=== PATIENT | female | born 1995 | race African-American/Black ===

== ENCOUNTER 2024-03-10 01:55 | Inpatient (IN) | payer OTHER ==
[2024-03-10 03:02] VITALS: BMI 38.4
[2024-03-10] MEDS: LACTATED RINGERS SOLUTION 1,000 ML/1,000 ML INFUS.BAG IV SCH (03:10)
[2024-03-10 03:26] LABS: HEMATOCRIT 36.4 % (32.4-45.2); HEMOGLOBIN 12.4 GM/dL (10.7-15.3); LYMPH % 23.4 % (8-40); MCH 31.5 pg (25.7-33.7); MCHC 34.1 g/dl (32.0-36.0); MEAN CELL VOLUME 92.3 fl (80-96); MEAN PLT VOLUME 7.5 fl (7.5-11.1); MONO % 7.3 % (3.8-10.2); NEUT % 67.3 % (42.8-82.8); PLATELET COUNT 300 10^3/uL (134-434); RBC 3.95 M/mm3 (3.60-5.2); RDW 14.4 % (11.6-15.6); WHITE BLOOD COUNT 9.7 K/mm3 (4.0-10.0)
[2024-03-10 03:41] LABS: INR 0.91 (0.83-1.09); PROTHROMBIN TIME (PATIENT) 10.3 SEC (9.7-13.0)
[2024-03-10 03:42] LABS: POTASSIUM 4.1 mmol/L (3.5-5.1)
[2024-03-10 03:43] LABS: ALBUMIN 2.8 g/dl (3.4-5.0); BLOOD UREA NITROGEN 11.4 mg/dL (7-18); CALCIUM 9.2 mg/dL (8.5-10.1)
[2024-03-10 03:44] LABS: ACTIVATED PTT 31.6 SECONDS (25.2-36.5)
[2024-03-10 03:47] LABS: CREATININE 0.7 mg/dL (0.55-1.3); URIC ACID 4.7 mg/dL (2.6-7.2)
[2024-03-10 03:49] LABS: BILIRUBIN,TOTAL 0.2 mg/dL (0.2-1); TOT PROT 6.8 g/dl (6.4-8.2)
[2024-03-10 03:53] LABS: EPI CELLS >36 /uL (0-25.1); HYALINE CASTS 7 /uL (0-3.1); URINE APPEARANCE CLEAR; URINE BACTERIA 46 /uL (0-1359); URINE BILIRUBIN NEGATIVE (NEGATIVE); URINE COLOR YELLOW; URINE GLUCOSE (UA) NEGATIVE (NEGATIVE); URINE KETONE NEGATIVE (NEGATIVE); URINE LEUK ESTERASE NEGATIVE (NEGATIVE); URINE NITRITE NEGATIVE (NEGATIVE); URINE PROTEIN NEGATIVE (NEGATIVE); URINE RBC 221 /uL (0-23.9); URINE UROBILINOGEN 0.2 mg/dL (0.2-1.0); URINE WBC 14 /uL (0-25.8)
[2024-03-10 04:00] LABS: URINE BARBITURATES NEGATIVE (NEGATIVE)
[2024-03-10 04:01] LABS: METHADONE, UR NEGATIVE (NEGATIVE); PHENCYCLIDINE,URINE NEGATIVE (NEGATIVE)
[2024-03-10] MEDS ORDERED: BUTORPHANOL TARTRATE 2 MG/ML VIAL ONE (04:04)
[2024-03-10] MEDS: BUTORPHANOL TARTRATE 1 MG/ML VIAL IVPB PRN (04:10)
[2024-03-10] MEDS: PROMETHAZINE HCL 25 MG/1 ML VIAL IVPB PRN (04:10)
[2024-03-10 04:12] LABS: COCAINE, UR NEGATIVE (NEGATIVE); OPIATES, URI NEGATIVE (NEGATIVE); URINE AMPHETAMINES NEGATIVE (NEGATIVE); URINE BENZODIAZEPINES NEGATIVE (NEGATIVE)
[2024-03-10 04:43] LABS: HIV INTERPRETATION NEGATIVE (NEGATIVE)
[2024-03-10] MEDS ORDERED: FENTANYL/BUPIVACAINE/NS/PF - PCEA - 50 ML DISP.SYRIN EP ONE ×3 (07:51→17:47)
[2024-03-10] MEDS: FENTANYL/BUPIVACAINE/NS/PF - PCEA - 50 ML DISP.SYRIN EP SCH (08:45)
[2024-03-10] MEDS ORDERED: NALOXONE HCL 0.4 MG/ML VIAL IVPUSH PRN (08:50)
[2024-03-10] MEDS ORDERED: OXYTOCIN 20 UNITS in 0.9% NS 20 UNIT/1,000 ML INFUS.BAG IV ONE (14:50)
[2024-03-10] MEDS ORDERED: OXYTOCIN 30 UNITS in 0.9% NS 30 UNIT/500 ML INFUS.BAG IVPB ONE (18:15)
[2024-03-10] MEDS ORDERED: OXYTOCIN 15 UNITS/ LR 250 ML 15 UNIT/250 ML INFUS.BAG IVPB SCH (19:15)
[2024-03-10] MEDS: OXYTOCIN 20 UNITS in 0.9% NS 20 UNIT/1,000 ML INFUS.BAG IV SCH (20:29)
[2024-03-10 20:52] LABS: CORD BASE EXCESS -6.3 mmol/L (0-2); CORD HCO3 18.9 mmHg (20-29); CORD PCO2 37.4 mmHg (30-78); CORD pH 7.322 (7.14-7.44)
[2024-03-10] MEDS ORDERED: BISACODYL 10 MG SUPP.RECT RC PRN (21:52)
[2024-03-10] MEDS ORDERED: BENZOCAINE 28 GM HEMORRHOIDAL OINTMENT TP PRN (21:52)
[2024-03-10] MEDS ORDERED: WITCH HAZEL 50% (TUCKS) 40 PAD/JAR PAD TP PRN (21:52)
[2024-03-10] MEDS ORDERED: ACETAMINOPHEN 325 MG TABLET (FP) PO PRN (21:52)
[2024-03-10] MEDS ORDERED: METHYLERGONOVINE MALEATE 0.2 MG/1 ML AMP IM PRN (21:52)
[2024-03-10] MEDS ORDERED: oxyCODONE HCL 5 MG TABLET ONE (22:16)
[2024-03-10] MEDS: oxyCODONE HCL 5 MG TABLET PO PRN (22:18)
[2024-03-10] MEDS: OXYTOCIN 15 UNITS/ LR 250 ML 15 UNIT/250 ML INFUS.BAG IVPB SCH (23:08)
[2024-03-11] MEDS: IBUPROFEN 600 MG TABLET (FP) PO PRN (03:49)
[2024-03-11] MEDS: BENZOCAINE 20% 57 GM BOTTLE TP PRN (03:50)
[2024-03-11 08:16] LABS: BASO % 0.4 % (0-2.0); HEMATOCRIT 32.5 % (32.4-45.2); LYMPH % 8.8 % (8-40); MCH 31.5 pg (25.7-33.7); MEAN CELL VOLUME 92.7 fl (80-96); MEAN PLT VOLUME 7.7 fl (7.5-11.1); MONO % 4.3 % (3.8-10.2); NEUT % 86.5 % (42.8-82.8); PLATELET COUNT 269 10^3/uL (134-434); RDW 14.3 % (11.6-15.6); WHITE BLOOD COUNT 17.2 K/mm3 (4.0-10.0)
[2024-03-11] MEDS: DIPHTH,PERTUSS(ACELL),TET 0.5 ML DISP.SYRIN IM ONE (11:17)
[2024-03-11] MEDS: PRENATAL VITAMINS W/ FOLIC ACID TABLET (FP) PO SCH (11:22)
[2024-03-11 12:47] VITALS: RESP 16
[2024-03-11 14:31] VITALS: BP 121/84; PULSE 83; TEMP 98.2
[2024-03-11] MEDS ORDERED: FENTANYL/BUPIVACAINE/NS/PF - PCEA - 50 ML DISP.SYRIN EP ONE (18:03)
[2024-03-11] MEDS ORDERED: SENNOSIDES/DOCUSATE COMBO (SENNA PLUS) TABLET (UD) PO PRN (22:00)
== END 2024-03-11 16:20 | disposition home or self-care (01) | DRG 560 ==
LOC: JLDR 01:55 → J3W 03-11 00:06
PROVIDERS: ADMIT Obstetrics & Gynecology; ATTEND Obstetrics & Gynecology
PROC: 10E0XZZ Delivery of Products of Conception, External Approach (ICD-10-PCS; principal; 2024-03-10)
PROC: 0KQM0ZZ Repair Perineum Muscle, Open Approach (ICD-10-PCS; 2024-03-10)
PROC: 0W8NXZZ Division of Female Perineum, External Approach (ICD-10-PCS; 2024-03-10)
DX: O70.1 Second degree perineal laceration during delivery (principal); Z3A.40 40 weeks gestation of pregnancy; Z37.0 Single live birth
CPT/HCPCS: 36415; 36600; 59409; 80053; 80307; 81003; 82803; 82977; 83010; 84550; 85025; 85045; 85610; 85730; 86780; 86850; 86900; 86901; 87389; 90715